=== PATIENT | female | born 1990 | race Caucasian/White ===

== ENCOUNTER → 2020-05-17 | Outpatient (CLI) | payer OTHER ==
[~2020-05-17] MED LIST: AMITRIPTYLINE H10 M1 PO; BACLOFEN 10MG T10 MG PO; ENBRACE HR SOF1 EACH PO; MEDROLDOSEPACK PO; MOBIC15 MG PO; TYLENOL325 M1 PO
== END ==
LOC: M.PC 10:31
PROVIDERS: ATTEND Anesthesiology Pain Medicine
DX: M54.9 Dorsalgia, unspecified (principal); M79.10 Myalgia, unspecified site; Z88.8 Allergy status to other drugs, medicaments and biological substances; Z79.899 Other long term (current) drug therapy